=== PATIENT | male | born 1975 | race Caucasian/White ===

== ENCOUNTER 2017-04-04 11:58 | Emergency (ER) | payer BC ==
--- NOTE | 2017-04-05 01:56 | CR ---
LEFT FOURTH DIGIT, 04/04/17 There is a nondisplaced fracture through the tuft of the distal phalanx. No other acute abnormalities. [id number] [facility]
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
== END 2017-04-04 12:47 | disposition home or self-care (01) ==
LOC: LB.ED 11:58
DX: S62.633A Displaced fracture of distal phalanx of left middle finger, initial encounter for closed fracture (principal); S60.132A Contusion of left middle finger with damage to nail, initial encounter; W23.1XXA Caught, crushed, jammed, or pinched between stationary objects, initial encounter
CPT/HCPCS: 29130; 73140-F3; 99283-25